=== PATIENT | female | born 1955 | race Asian ===

== ENCOUNTER 2021-06-27 19:55 | Emergency (ER) | payer MEDICARE, OTHER ==
[~2021-06-27] VITALS: Ht 154.9 cm; Wt 83.2 kg
[2021-06-27 21:30] VITALS: BP 129/71
== END 2021-06-27 22:01 | disposition home or self-care (01) ==
LOC: EMS 20:00
DX: G51.0 Bell's palsy (principal); E11.9 Type 2 diabetes mellitus without complications; I10 Essential (primary) hypertension
CPT/HCPCS: 82962; 99283

== ENCOUNTER 2022-09-26 20:43 | Emergency (ER) | payer MEDICARE, OTHER ==
[~2022-09-26] VITALS: Ht 167.6 cm; Wt 80.0 kg
[2022-09-26 21:42] LABS: APPEARANCE,URINE CLEAR (CLEAR); BILIRUBIN,URINE NEGATIVE (NEGATIVE); GLUCOSE, URINE (UA) >=1000 mg/dL (NEGATIVE); KETONES,URINE NEGATIVE (NEGATIVE); LEUKOCYTE ESTERASE ,URINE MODERATE (NEGATIVE); NITRATE,URINE NEGATIVE (NEGATIVE); OCCULT BLOOD,URINE SMALL (NEGATIVE); PH,URINE 5.5 (5.0-8.0); PROTEIN,URINE TRACE mg/dL (NEGATIVE); SPECIFIC GRAVITIY, URINE 1.019 (1.003-1.030); UROBILINOGEN,URINE <=1.0 mg/dL (<=1.0)
[2022-09-26 21:54] LABS: BACTERIA,URINE Few /HPF (None Seen); SQUAMOUS EPITHELIAL CELL,UR Few /LPF (None Seen); WBC,URINE 26-50 /HPF (0-5)
[2022-09-26] MEDS ORDERED: CEPHALEXIN MONOHYDRATE 500 MG CAPSULE PO ONE (22:30)
[2022-09-26] MEDS ORDERED: ACETAMINOPHEN 500 MG TABLET PO ONE (22:30)
[2022-09-26] MEDS ORDERED: LOSA100T58 PO (22:31)
[2022-09-26] MEDS ORDERED: AMLO5TAB66 PO (22:31)
[2022-09-26] MEDS ORDERED: DAPA10TA PO (22:31)
[2022-09-26] MEDS ORDERED: OMEP20CA12 PO (22:31)
[2022-09-26] MEDS ORDERED: GLIP10TA9 PO (22:31)
[2022-09-26] MEDS ORDERED: METF750T57 PO (22:31)
[2022-09-26 22:54] VITALS: BP 127/73
== END 2022-09-26 23:09 | disposition home or self-care (01) ==
LOC: EMS 20:44
DX: N39.0 Urinary tract infection, site not specified (principal); E11.9 Type 2 diabetes mellitus without complications; I10 Essential (primary) hypertension; Z98.890 Other specified postprocedural states
CPT/HCPCS: 81001; 87086; 87186; 99283